=== PATIENT | female | born 1980 | race Caucasian/White ===

== ENCOUNTER → 2020-06-24 15:29 | Outpatient (CLI) | payer OTHER, MEDICAID, SELFPAY ==
[2020-06-24 17:05] LABS: Alanine Aminotransferase 21 IU/L (<35); Albumin 3.9 g/dL (3.5-5.0); Albumin Globulin Ratio 1.5 (1.0-2.8); Alkaline Phosphatase 66 U/L (38-126); Aspartate Aminotransferase 24 IU/L (14-36); BUN Creatinine Ratio 24.2 (6-22); Bilirubin Total 0.3 mg/dL (0.2-1.3); Blood Urea Nitrogen 16 mg/dL (7-17); Calcium 9.2 mg/dL (8.4-10.2); Carbon Dioxide 33 mmol/L (22-32); Chloride 100 mmol/L (98-107); Estimated Glomerular Filt Rate > 60.0 mL/min (>60); Globulin 2.6 g/dL (1.7-4.1); Glucose 72 mg/dL (70-100); HEMOLYSIS < 15 (0-50); Potassium 4.4 mmol/L (3.4-5.1); Sodium 138 mmol/L (137-145); Total Protein 6.5 g/dL (6.3-8.2)
== END ==
PROVIDERS: PCP Registered Nurse; Referring Provider Registered Nurse; Visit Provider Registered Nurse
DX: F90.9 Attention-deficit hyperactivity disorder, unspecified type (principal)
CPT/HCPCS: 36415; 80053

== ENCOUNTER → 2020-12-09 12:01 | Outpatient (CLI) | payer OTHER, MEDICAID, SELFPAY ==
[2020-12-09 13:23] LABS: Hepatitis B Surface Antigen NEGATIVE s/c (NEGATIVE)
[2020-12-09 13:40] LABS: HIV 1 & 2 Ab/Ag 4th Gen Combo NEGATIVE (NEGATIVE); Hep C Virus Ab w/Reflex Quant NEGATIVE s/c (NEGATIVE)
[2020-12-10 03:40] LABS: RPR Screen Non Reactive (Non Reactive)
== END ==
PROVIDERS: PCP Registered Nurse; Referring Provider Registered Nurse; Visit Provider Registered Nurse
DX: N89.8 Other specified noninflammatory disorders of vagina (principal); Z11.3 Encounter for screening for infections with a predominantly sexual mode of transmission
CPT/HCPCS: 36415; 86592; 86803; 87210; 87340; 87389

== ENCOUNTER 2020-12-14 20:02 | Emergency (ER) | payer OTHER, MEDICAID, SELFPAY ==
[2020-12-14 20:11] VITALS: TEMP 36.4
[2020-12-14 20:14] VITALS: BP 117/65; PULSE 83; RESP 18; O2SAT 100
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
[2020-12-14 22:38] VITALS: BP 128/78; PULSE 80; RESP 18; O2SAT 98
== END 2020-12-14 22:38 | disposition home or self-care (01) ==
PROVIDERS: Emergency Provider Emergency Medicine; PCP Registered Nurse
DX: R04.0 Epistaxis (principal); S09.92XA Unspecified injury of nose, initial encounter
CPT/HCPCS: 70160; 99283

== ENCOUNTER → 2020-12-27 09:29 | Outpatient (CLI) | payer OTHER, MEDICAID, SELFPAY ==
--- NOTE | 2020-12-27 09:30 | DI.US.S_ITS ---
PROCEDURE: US PELVIC COMPLETE INDICATIONS: PAIN, DISCHARGE TECHNIQUE: Real-time scanning was performed of the pelvic organs, with image documentation. Additional endovaginal scanning was necessary due to incomplete visualization of the adnexal and endometrial structures by transabdominal scanning. COMPARISON: None. FINDINGS: Uterus: Uterus is normal in size at 7.3 x 4.9 x 5.1 cm. The endometrium measures 3 mm in combined thickness. There is an IUD in place. Ovaries: Right ovary measures 3.8 x 1.6 x 1.6 cm. Left ovary measures 4.1 x 1.6 x 2.0 cm. There is a simple cyst in the left ovary measuring 1.6 x 0.9 x 1.3 cm. Other: No pathologic free abdominal or pelvic fluid. IMPRESSION: 1. IUD in appropriate position. 2. A simple cyst in the left ovary, likely a dominant ovarian follicle. Dictated by: Demetri Constantino M.D. on 12/27/2020 at 10:04 Approved by: Demetri Constantino M.D. on 12/27/2020 at 22:11
== END ==
PROVIDERS: PCP Registered Nurse; Referring Provider Registered Nurse; Visit Provider Registered Nurse
DX: R10.2 Pelvic and perineal pain (principal); N83.292 Other ovarian cyst, left side; Z97.5 Presence of (intrauterine) contraceptive device
CPT/HCPCS: 76830; 76856

== ENCOUNTER → 2025-01-26 11:01 | Outpatient (CLI) | payer OTHER, SELFPAY ==
--- NOTE | 2025-01-26 11:05 | DI.RAD.S_ITS ---
PROCEDURE: XR FOOT RT MIN 3V INDICATIONS: R FOOT PAIN TECHNIQUE: 3 views of the foot were acquired. COMPARISON: None. FINDINGS: Bones: No fractures or dislocations. Valgus angulation about the 1st metatarsophalangeal joint measures 17?. No suspicious bony lesions. Plantar calcaneal enthesopathy. Soft tissues: No tibiotalar joint effusion. Achilles tendon appears normal. IMPRESSION: No acute bony abnormality. Mild hallux valgus noted. Dictated by: Kahlil Mcduffie M.D. on 01/27/2025 at 2:17 Approved by: Kahlil Mcduffie M.D. on 01/27/2025 at 2:19
== END ==
LOC: RAD 11:03
PROVIDERS: Referring Provider Podiatrist Foot & Ankle Surgery; Visit Provider Podiatrist Foot & Ankle Surgery
DX: M20.11 Hallux valgus (acquired), right foot (principal); M77.31 Calcaneal spur, right foot; M79.671 Pain in right foot
CPT/HCPCS: 73630